=== PATIENT | female | born 1970 | race Caucasian/White ===

== ENCOUNTER 2019-01-04 11:14 | Emergency (ER) | payer OTHER ==
[~2019-01-04] VITALS: Ht 152.4 cm; Wt 103.9 kg
[~2019-01-04 11:14] MED LIST: ASPIRIN E.C.81 MG PO; ZES10 PO
[2019-01-04 11:36] VITALS: Ht 152.4 cm; Wt 103.9 kg
[2019-01-04 16:54] LABS: PLATELET COUNT 493 x10^3mcL (130-400); RED CELL DISTRIBUTION WIDTH 19.5 % (11.5-14.5)
[2019-01-04 16:55] LABS: CALCIUM 8.4 mg/dL (8.5-10.1); CARBON DIOXIDE 28.7 mmol/L (21-32); CHLORIDE SERUM 105 mmol/L (98-107); CREATININE SERUM 0.5 mg/dL (0.6-1.0); GFR1 > 60 mL/min; GLUCOSE SERUM 130 mg/dL (74-106); SODIUM SERUM 141 mmol/L (136-145)
[2019-01-04 17:00] LABS: ALKALINE PHOSPHATASE 89 U/L (46-116); ALT/SGPT 14 U/L (14-59); AST/SGOT 11 U/L (15-37); BILIRUBIN TOTAL 0.26 mg/dL (0.20-1.00); TOTAL PROTEIN, SERUM 7.4 g/dL (6.4-8.2)
[2019-01-04 17:05] LABS: BAND NEUTROPHIL 0 % (0-10); BASOPHIL 0 % (0-2); MONOCYTE 4 % (0-7); SEGMENTED NEUTROPHILS 66 % (37-75)
[2019-01-04 17:07] LABS: ALBUMIN 3.2 g/dL (3.4-5.0)
[2019-01-04 17:13] LABS: rbc morphology (normal/abnorm) ABNORMAL (NORMAL)
[2019-01-04 17:15] LABS: ovalocyte/elliptocyte 1+
[2019-01-04 17:39] VITALS: BP 145/80
== END 2019-01-04 18:57 | disposition home or self-care (01) ==
LOC: ED 11:14
PROVIDERS: Emergency Medicine
DX: N93.8 Other specified abnormal uterine and vaginal bleeding (principal); D64.9 Anemia, unspecified; R42 Dizziness and giddiness
CPT/HCPCS: 36415